=== PATIENT | female | born 1940 | race African-American/Black ===

== ENCOUNTER 2018-08-10 09:45 | Emergency (ER) | payer OTHER, BC ==
[2018-08-10 10:07] VITALS: BMI 29.7
--- NOTE | 2018-08-10 12:00 | PDOC ---
History of Present Illness - General Chief Complaint: Chest Pain Stated Complaint: CHEST PAIN Time Seen by Provider: 08/10/18 10:25 - History of Present Illness Initial Comments: 08/10/18 11:58 The patient is a 78 year old female with a past medical history of sarcoidosis, renal insufficiency, and anemia here today for evaluation of L sided chest pain. The patient describes her pain as a soreness located under her L breast, states it is intermittent, and is worse with movement. She states that it started 3 days ago. Denies any association with food but states it feels like indigestion. Pt notes associated belching. Patient denies headache, lightheadedness. Denies fever, chills. Denies shortness of breath. Denies nausea, vomiting, diarrhea. Allergies: NKA Surgical history: Right Nephrectomy 2013 (Tejas Mobley) Past History - Past Medical History COPD: No GI Disorders: Yes (DIVERTICULITIS) Disorders: Yes (ESRD, 30% kidney function) HTN: Yes - Surgical History Abdominal Surgery: Yes (MYOMECTOMY) - Suicide/Smoking/Psychosocial Hx Smoking Status: No Smoking History: Never smoked Have you smoked in the past 12 months: No Number of Cigarettes Smoked Daily: 0 Information on smoking cessation initiated: No Hx Alcohol Use: No Drug/Substance Use Hx: No Substance Use Type: None - Past Medical History Allergies/Adverse Reactions: Allergies Allergy/AdvReac Type Severity Reaction Status Date / Time No Known Allergies Allergy Verified 08/10/18 10:03 Home Medications: Ambulatory Orders Cholecalciferol (Vitamin D3) [Vitamin D] 1,000 unit PO WEEKLY 12/06/12 Ascorbic Acid [Vitamin C -] 500 mg PO DAILY 08/10/18 Methenamine Hippurate [Hiprex [Nf] -] 1 gm PO BID 08/10/18 Review of Systems - Review of Systems Comments:: 08/10/18 12:00 GENERAL/CONSTITUTIONAL: No fever or chills. No weakness. HEAD, EYES, EARS, NOSE AND THROAT: No change in vision. No ear pain or discharge. No sore throat. CARDIOVASCULAR: + chest pain, no shortness of breath, no loss of consciousness RESPIRATORY: No cough, wheezing, or hemoptysis. GASTROINTESTINAL: No nausea, vomiting, diarrhea or constipation. GENITOURINARY: No dysuria, frequency, or change in urination. MUSCULOSKELETAL: No joint or muscle swelling or pain. No neck or back pain. SKIN: No rash NEUROLOGIC: No vertigo, no change in strength/sensation. ENDOCRINE: No increased thirst. No abnormal weight change. HEMATOLOGIC/LYMPHATIC: No anemia, easy bleeding, or history of blood clots. ALLERGIC/IMMUNOLOGIC: No hives or skin allergy. (Ou,Tejas) *Physical Exam - Vital Signs Last Vital Signs Temp Pulse Resp BP Pulse Ox 98.8 F 76 16 137/71 97 08/10/18 19:08 08/10/18 19:08 08/10/18 10:39 08/10/18 19:08 08/10/18 19:08 - Physical Exam Comments: 08/10/18 12:00 "GENERAL: Awake, alert, and fully oriented, in no acute distress. HEAD: No signs of trauma EYES: PERRLA, EOMI, sclera anicteric, conjunctiva clear ENT: Auricles normal inspection, hearing grossly normal, nares patent, oropharynx clear without exudates. Moist mucosa NECK: Nontender, no stepoffs, Normal ROM, supple, no lymphadenopathy, JVD, or masses LUNGS: Breath sounds equal, clear to auscultation bilaterally. No wheezes, and no crackles HEART: Regular rate and rhythm, normal S1 and S2, no murmurs, rubs or gallops ABDOMEN: Soft, nontender, normoactive bowel sounds. No guarding, no rebound. No masses EXTREMITIES: Normal range of motion, no edema. No clubbing or cyanosis. No cords, erythema, or tenderness NEUROLOGICAL: Cranial nerves II through XII intact. 5/5 strength and sensation in all extremities, Normal speech, normal gait, normal cerebellar function SKIN: Warm, Dry, normal turgor, no rashes or lesions noted. (Ou,Tejas) Heart Score/ECG Review - History History: Slightly suspicious - Electrocardiogram EKG: Normal - Age Age: >/= 65 - Risk Factors Risk Factors Heart Score: Yes Hx Obesity Based on the list above the patient has:: 1-2 risk factors - Troponin Troponin: </= normal limit - Score Heart Score - Total: 3 - ECG Impressions Comment:: 08/10/18 12:10 NSR, no EDOUARD/STDS, no TWIs, axis wnl, intervals wnl, rate 69 (Ou,Tejas) - Procedure Monitoring Vital Signs: Procedure Monitoring Vital Signs Temperature 98.8 F 08/10/18 19:08 Pulse Rate 76 08/10/18 19:08 Respiratory Rate 16 08/10/18 10:39 Blood Pressure 137/71 08/10/18 19:08 O2 Sat by Pulse Oximetry (%) 97 08/10/18 19:08 ED Treatment Course - LABORATORY CBC & Chemistry Diagram: 08/10/18 14:00 08/10/18 11:29 - ADDITIONAL ORDERS Additional order review: 08/10/18 13:50 Urine Culture - Final Urine - Urine Clean Catch Contaminated: Please Repeat 08/10/18 14:00 RBC 3.84 MCV 81.2 MCHC 33.1 RDW 14.5 MPV 8.7 D Neutrophils % 57.4 D Lymphocytes % 27.8 D Monocytes % 11.4 H Eosinophils % 2.9 D Basophils % 0.5 - RADIOLOGY Radiology Studies Ordered: Category Date Time Status ABDOMEN & PELVIS CT W/O CONTR [CT] Stat CT Scan 08/10/18 14:59 Completed ABDOMEN [id number] [RAD] Stat Radiology 08/10/18 11:01 Completed CHEST PA & LAT [RAD] Stat Radiology 08/10/18 11:01 Completed - Medications Given in the ED: ED Medications Discontinued Medications Generic Name Dose Route Start Last Admin Trade Name Freq PRN Reason Stop Dose Admin Famotidine/Sodium Chloride 20 mg in 50 mls @ 100 mls/hr 08/10/18 12:12 13:27 Pepcid 20 Mg Premixed Ivpb - IVPB 08/10/18 12:41 100 mls/hr ONCE ONE Administration Ondansetron HCl 4 mg 08/10/18 12:12 08/10/18 13:27 Zofran Injection IVPB 08/10/18 12:13 4 mg ONCE ONE Administration Medical Decision Making - Medical Decision Making 08/10/18 12:11 78 F with L sided chest pain with belching. Suspect pain is GI related. Pt with no significant ACS risk factors and completely normal EKG. - Labs, trop - CXR, Abd XR - GI cocktail XR shows ?obstruction Labs wnl, first trop negative CT ordered Pt signed out to oncoming attending at 5PM, pending repeat trop, CT results, and re-evaluation (Tejas Mobley) *DC/Admit/Observation/Transfer Diagnosis at time of Disposition: Left-sided chest pain - Discharge Dispostion Disposition: HOME Condition at time of disposition: Stable - Patient Instructions Printed Discharge Instructions: DI for Atypical Chest Pain Additional Instructions: Ms. Banegas Thank you for coming in to the ER today Please return to the emergency department immediately with ANY new, persistent or worsening symptoms. Continue any medications as previously prescribed by your physician. You should follow up with your primary doctor as soon as possible regarding today's emergency department visit. Please make sure your doctor reviews the results of your emergency evaluation. Thank you for coming to the [facility] today for your care. It was a pleasure to see you today. Please note that your evaluation is INCOMPLETE until you follow-up with your doctor. - Attestations Scribe Attestion: 08/10/18 12:13 Documentation prepared by HI Bush, acting as medical secretary for Tejas Mobley MD. ([place] De Paz) Physician Attestion: 08/13/18 07:44 I, Dr. Tejas Mobley MD, attest that this document has been prepared under my direction and personally reviewed by me in its entirety. I further attest, that it accurately reflects all work, treatment, procedures and medical decision -making performed by me. (Tejas Mobley)
[2018-08-10] MEDS ORDERED: FAMOTIDINE 20 MG/50 ML IVPB 20 MG/50 ML MG IVPB ONE ×2 (12:12→13:27)
[2018-08-10] MEDS ORDERED: ONDANSETRON 4 MG/2 ML VIAL IVPB ONE (12:12)
[2018-08-10 13:09] LABS: ALBUMIN 3.2 g/dl (3.4-5.0); ALK PHOS 81 U/L (45-117); ANION GAP 7 MMOL/L (8-16); BILIRUBIN,TOTAL 0.4 mg/dL (0.2-1); BLOOD UREA NITROGEN 27 mg/dL (7-18); CALCIUM 8.5 mg/dL (8.5-10.1); CHLORIDE 114 mmol/L (98-107); CO2 20 mmol/L (21-32); CREATININE 1.8 mg/dL (0.55-1.3); GLUCOSE,RANDOM 86 mg/dL (74-106); LIPASE 188 U/L (73-393); POTASSIUM 4.3 mmol/L (3.5-5.1); SGOT/AST 13 U/L (15-37); SGPT/ALT 13 U/L (13-61); SODIUM 142 mmol/L (136-145); TOT PROT 7.2 g/dl (6.4-8.2)
[2018-08-10] MEDS ORDERED: ONDANSETRON 4 MG/2 ML VIAL ONE (13:27)
[2018-08-10 14:08] LABS: URINE APPEARANCE CLEAR; URINE BILIRUBIN NEGATIVE (<2.0 mg/dL); URINE COLOR LTYELLOW; URINE GLUCOSE (UA) NEGATIVE (NEGATIVE); URINE KETONE NEGATIVE (NEGATIVE); URINE LEUK ESTERASE 3+ (NEGATIVE); URINE NITRITE NEGATIVE (NEGATIVE); URINE PROTEIN NEGATIVE (NEGATIVE); URINE UROBILINOGEN NEGATIVE mg/dL (0.2-1.0)
[2018-08-10 14:15] LABS: EPI CELLS RARE /HPF (FEW); URINE MUCUS RARE
[2018-08-10 14:17] LABS: BASO % 0.5 % (0-2.0); EOS % 2.9 % (0-4.5); HEMATOCRIT 31.2 % (32.4-45.2); HEMOGLOBIN 10.3 GM/dL (10.7-15.3); LYMPH % 27.8 % (8-40); MCH 26.9 pg (25.7-33.7); MCHC 33.1 g/dl (32.0-36.0); MEAN CELL VOLUME 81.2 fl (80-96); MEAN PLT VOLUME 8.7 fl (7.5-11.1); MONO % 11.4 % (3.8-10.2); NEUT % 57.4 % (42.8-82.8); PLATELET COUNT 164 K/MM3 (134-434); RBC 3.84 M/mm3 (3.60-5.2); RDW 14.5 % (11.6-15.6); WHITE BLOOD COUNT 3.5 K/mm3 (4.0-10.0)
[2018-08-10 19:09] VITALS: BP 137/71; PULSE 76; TEMP 98.8
--- NOTE | 2018-08-10 21:54 | PDOC ---
*Physical Exam - Vital Signs Last Vital Signs Temp Pulse Resp BP Pulse Ox 98.8 F 76 16 137/71 97 08/10/18 19:08 08/10/18 19:08 08/10/18 10:39 08/10/18 19:08 08/10/18 19:08 ED Treatment Course - LABORATORY CBC & Chemistry Diagram: 08/10/18 14:00 08/10/18 11:29 - ADDITIONAL ORDERS Additional order review: Laboratory Results 08/10/18 08/10/18 13:50 11:29 Sodium 142 Potassium 4.3 Chloride 114 H Carbon Dioxide 20 L Anion Gap 7 L BUN 27 H Creatinine 1.8 H Creat Clearance w eGFR 27.21 Random Glucose 86 Calcium 8.5 Total Bilirubin 0.4 AST 13 L ALT 13 Alkaline Phosphatase 81 Creatine Kinase 69 Troponin I < 0.02 Total Protein 7.2 Albumin 3.2 L Lipase 188 Urine Color Ltyellow Urine Appearance Clear Urine pH 5.0 Ur Specific [place] 1.013 Urine Protein Negative Urine Glucose (UA) Negative Urine Ketones Negative Urine Blood Negative Urine Nitrite Negative Urine Bilirubin Negative Urine Urobilinogen Negative Ur Leukocyte Esterase 3+ H Urine WBC (Auto) 7 Urine RBC (Auto) 3 Ur Epithelial Cells Rare Urine Mucus Rare 08/10/18 14:00 RBC 3.84 MCV 81.2 MCHC 33.1 RDW 14.5 MPV 8.7 D Neutrophils % 57.4 D Lymphocytes % 27.8 D Monocytes % 11.4 H Eosinophils % 2.9 D Basophils % 0.5 - Medications Given in the ED: ED Medications Discontinued Medications Generic Name Dose Route Start Last Admin Trade Name Freq PRN Reason Stop Dose Admin Famotidine/Sodium Chloride 20 mg in 50 mls @ 100 mls/hr 08/10/18 12:12 13:27 Pepcid 20 Mg Premixed Ivpb - IVPB 08/10/18 12:41 100 mls/hr ONCE ONE Administration Ondansetron HCl 4 mg 08/10/18 12:12 08/10/18 13:27 Zofran Injection IVPB 08/10/18 12:13 4 mg ONCE ONE Administration Medical Decision Making - Medical Decision Making 08/10/18 21:53 I received this patient on sign out She is pending CT of the abd and pelvis (r/o sbo) and repeat troponin Awaiting trop 08/10/18 22:32 Laboratory Tests 08/10/18 08/10/18 11:29 19:00 Creatine Kinase 69 68 Troponin I < 0.02 < 0.02 Will discharge to home Will ask pt to follow up with PMD return to the ER for any other concerns or complaints *DC/Admit/Observation/Transfer Diagnosis at time of Disposition: Left-sided chest pain - Discharge Dispostion Disposition: HOME Condition at time of disposition: Stable Decision to Admit order: No - Referrals - Patient Instructions Printed Discharge Instructions: DI for Atypical Chest Pain Additional Instructions: Ms. Banegas Thank you for coming in to the ER today Please return to the emergency department immediately with ANY new, persistent or worsening symptoms. Continue any medications as previously prescribed by your physician. You should follow up with your primary doctor as soon as possible regarding today's emergency department visit. Please make sure your doctor reviews the results of your emergency evaluation. Thank you for coming to the [facility] today for your care. It was a pleasure to see you today. Please note that your evaluation is INCOMPLETE until you follow-up with your doctor. - Post Discharge Activity
--- NOTE | 2018-08-11 18:09 | EKG ---
Test Reason : Blood Pressure : / mmHG Vent. Rate : 069 BPM Atrial Rate : 069 BPM P-R Int : 134 ms QRS Dur : 068 ms QT Int : 404 ms P-R-T Axes : 006 004 041 degrees QTc Int : 432 ms POOR DATA QUALITY, INTERPRETATION MAY BE ADVERSELY AFFECTED NORMAL SINUS RHYTHM INFERIOR INFARCT , AGE UNDETERMINED ABNORMAL ECG WHEN COMPARED WITH ECG OF 05-JUN-2009 06:35, NO SIGNIFICANT CHANGE WAS FOUND Confirmed by MD ANSHUL, JUSTICE ([id number]) on 08/11/2018 6:08:52 PM Referred By: Confirmed By:JUSTICE LANDERS MD
== END 2018-08-10 22:40 | disposition home or self-care (01) ==
LOC: JER 09:45
PROC: 3E033GC Introduction of Other Therapeutic Substance into Peripheral Vein, Percutaneous Approach (ICD-10-PCS; principal; 2018-08-10)
DX: R07.9 Chest pain, unspecified (principal)
CPT/HCPCS: 36415; 71046-TC-FY; 74021-TC-FY; 74176-TC; 80053; 81003; 81015; 82550; 83690; 84484; 85025; 87086; 93005; 93010; 96365; 96375; 99283-25; Q9967

== ENCOUNTER 2019-08-18 08:48 | Emergency (ER) | payer OTHER, BC ==
[2019-08-18 08:54] VITALS: BP 133/98; PULSE 83; TEMP 98.3; BMI 29.1
--- NOTE | 2019-08-18 09:31 | PDOC ---
History of Present Illness - General Chief Complaint: Respiratory Stated Complaint: CHEST TIGHTNESS Time Seen by Provider: 08/18/19 09:09 History Source: Patient Exam Limitations: No Limitations - History of Present Illness Initial Comments: 08/18/19 09:28 Brendan Banegas is a 79F with history of sarcoidosis presenting with one day of an intermittent dry cough. Patient started coughing last night and became concerned, came to ED for further evaluation. Denies any covid-19 exposures, no sick contacts at home. Denies chest pain, palpitations, SOB, productive cough, abdominal pain, SANTILLAN, vision changes, urinary symptoms, fever, chills, nausea, vomiting, or diarrhea. Saw her manager etl last week and was doing fine, gets CT scans periodically. No allergies. [facility] appendectomy 2015. Denies tobacco/alcohol/drugs. Past History - Past Medical History Allergies/Adverse Reactions: Allergies Allergy/AdvReac Type Severity Reaction Status Date / Time No Known Allergies Allergy Verified 08/18/19 08:54 Home Medications: Ambulatory Orders Cholecalciferol (Vitamin D3) [Vitamin D] 1,000 unit PO WEEKLY 12/06/12 Ascorbic Acid [Vitamin C -] 500 mg PO DAILY 08/10/18 Methenamine Hippurate [Hiprex [Nf] -] 1 gm PO BID 08/10/18 COPD: No GI Disorders: Yes (DIVERTICULITIS) Disorders: Yes (ESRD, 30% kidney function) HTN: Yes Other medical history: sarcoidosis - Surgical History Abdominal Surgery: Yes (MYOMECTOMY) - Immunization History Immunization Up to Date: (Unknown) - Psycho Social/Smoking Cessation Hx Smoking Status: No Smoking History: Never smoked Have you smoked in the past 12 months: No Number of Cigarettes Smoked Daily: 0 Hx Alcohol Use: No Drug/Substance Use Hx: No Substance Use Type: None Review of Systems - Review of Systems Able to Perform ROS?: Yes Constitutional: No: Symptoms Reported HEENTM: No: Symptoms Reported Respiratory: Yes: Cough. No: Shortness of Breath, SOB with Exertion, SOB at Rest, Wheezing Cardiac (ROS): No: Symptoms Reported ABD/GI: No: Symptoms Reported : No: Symptoms Reported Musculoskeletal: No: Symptoms Reported Integumentary: No: Symptoms Reported Neurological: No: Symptoms reported Endocrine: No: Symptoms Reported Hematologic/Lymphatic: No: Symptoms Reported All Other Systems: Reviewed and Negative *Physical Exam - Vital Signs Last Vital Signs Temp Pulse Resp BP Pulse Ox 98.3 F 83 18 133/98 98 08/18/19 08:51 08/18/19 08:51 08/18/19 08:51 08/18/19 08:51 08/18/19 08:51 - Physical Exam General Appearance: Yes: Nourished, Appropriately Dressed, Other (sitting in bed, reading book in NAD, speaking in full sentences without issues). No: Apparent Distress HEENT: positive: EOMI, AMADEO, Normal ENT Inspection, Normal Voice, Symmetrical, Pharynx Normal, Hearing Grossly Normal. negative: TMs Normal, Scleral Icterus (R), Scleral Icterus (L), Pharyngeal Erythema, Tonsillar Exudate Neck: positive: Trachea midline, Normal Thyroid, Supple. negative: Tender, Rigid, Lymphadenopathy (R), Lymphadenopathy (L) Respiratory/Chest: positive: Lungs Clear, Normal Breath Sounds. negative: Chest Tender, Respiratory Distress, Accessory Muscle Use, Crackles, Rales, Rhonchi, Stridor, Wheezing Cardiovascular: positive: Regular Rhythm, Regular Rate. negative: Murmur Gastrointestinal/Abdominal: positive: Normal Bowel Sounds, Flat, Soft. negative: Tender, Organomegaly, Pulsatile Mass, Guarding, Rebound Extremity: positive: Normal Capillary Refill, Normal Inspection, Normal Range of Motion, Pelvis Stable. negative: Tender Integumentary: positive: Normal Color, Dry, Warm Neurologic: positive: Fully Oriented, Alert, Normal Mood/Affect, Normal Response Medical Decision Making - Medical Decision Making 08/18/19 09:44 Patient presents with new onset intermittent dry cough with no other symptoms, in NAD, VS stable. Concern low for PNA, no known covid-19 exposures, afebrile. Physical exam shows completely clear lungs. Getting CXR to eval for new onset lung pathology, otherwise can be discharged home with covid-19 precautions if CXR normal. 08/18/19 09:57 CXR read as old infiltrate vs. atelectasis at R base, consistent with CXR 1 week prior. No new concerning pathology. Stable for discharge home with strict return precautions. Discharge - Discharge Information Problems reviewed: Yes Clinical Impression/Diagnosis: Cough Condition: Stable Disposition: HOME - Admission No - Follow up/Referral - Patient Discharge Instructions Patient Printed Discharge Instructions: DI for Cough -- Adult, [facility]-Coronavirus Instructions Additional Instructions: Today you were evaluated for a cough. Your chest x-ray looks normal. You do not have any diseases that require emergency medical attention. At home, please remember to wash your hand and stay away from groups of people to avoid spread of any viruses. See your primary doctor in the next week for further care. If you experience any worsening shortness of breath, chest pain, palpitations, difficulty breathing, fever, nausea, vomiting, any other new or concerning symptoms, please return to the emergency room. - Post Discharge Activity
--- NOTE | 2019-08-18 09:59 | PDOC ---
Attending Attestation - Resident Resident Name: AnselmomarileeMir - ED Attending Attestation I have performed the following: I have examined & evaluated the patient, The case was reviewed & discussed with the resident, I agree w/resident's findings & plan, Exceptions are as noted - HPI HPI: 08/18/19 11:03 79 years old past medical history significant for sarcoidosis presents with 1 day of intermittent dry cough no fever no chills no chest pain no shortness of breath no nausea no vomiting no diarrhea came to ED for evaluation currently asymptomatic at this time - Physicial Exam PE: 08/18/19 11:03 Vitals: Triage Vital signs reviewed General Appearance: No acute distress, well nourished well developed, Head: Atraumatic, Cardiac: Regular rate and rhythym, no murmurs, no rubs, no gallops, Lungs: Clear to auscultation bilateral, good air movement bilaterally, Abdomen: Soft, non distended, normal bowel sounds, non tender to palpation Extremities: Full range of motion to all extremities, no cyanosis, clubbing, or edema Skin: Warm and dry, no rashes or lesions, no rash, no petechiae Psych: Normal mood, normal affect - Medical Decision Making 08/18/19 11:05 Well-appearing no apparent distress mild shortness of breath resolved no chest pain no significant past medical history asymptomatic at this time low suspicion for coronavirus however patient discussed with self quarantining avoiding contact with others instructed to return to ED for any severe worsening symptoms or for any concerns Chest x-ray unchanged from baseline Findings, the need for follow-up and strict return instructions discussed with patient. Discharge - Discharge Information Problems reviewed: Yes Clinical Impression/Diagnosis: Cough Condition: Stable Disposition: HOME - Follow up/Referral - Patient Discharge Instructions Patient Printed Discharge Instructions: DI for Cough -- Adult, [facility]-Coronavirus Instructions Additional Instructions: Today you were evaluated for a cough. Your chest x-ray looks normal. You do not have any diseases that require emergency medical attention. At home, please remember to wash your hand and stay away from groups of people to avoid spread of any viruses. See your primary doctor in the next week for further care. If you experience any worsening shortness of breath, chest pain, palpitations, difficulty breathing, fever, nausea, vomiting, any other new or concerning symptoms, please return to the emergency room. - Post Discharge Activity
--- NOTE | 2019-08-19 09:39 | EKG ---
Test Reason : Blood Pressure : / mmHG Vent. Rate : 081 BPM Atrial Rate : 081 BPM P-R Int : 146 ms QRS Dur : 068 ms QT Int : 378 ms P-R-T Axes : 044 031 057 degrees QTc Int : 439 ms NORMAL SINUS RHYTHM ABNORMAL ECG WHEN COMPARED WITH ECG OF 10-AUG-2018 09:49, CRITERIA FOR INFERIOR INFARCT ARE NO LONGER PRESENT Confirmed by Jennifer Holden ([id number]) on 08/19/2019 9:38:58 AM Referred By: Confirmed By:Jennifer Holden
== END 2019-08-18 10:50 | disposition home or self-care (01) ==
LOC: JER 08:48
DX: R05 Cough (principal); D86.9 Sarcoidosis, unspecified; I12.0 Hypertensive chronic kidney disease with stage 5 chronic kidney disease or end stage renal disease; N18.6 End stage renal disease; Z87.19 Personal history of other diseases of the digestive system
CPT/HCPCS: 71046-TC-FY; 93005; 93010; 99284-25